=== PATIENT | male | born 1950 ===

== ENCOUNTER 2018-08-12 17:09 | Emergency (ER) | payer MEDICARE ==
[2018-08-12 17:18] VITALS: BP 139/74
--- NOTE | 2018-08-12 18:14 | ED ---
Upper Extremity Pain - HPI Summary HPI Summary: About 1600 yesterday Mr. Dover started with pain in his right upper arm and shoulder. It interfered with his sleep last night but hasn't essentially changed in severity or character since then. It hurts to move especially to try to lift his arm. He is not aware of any injury or overuse. He has a history of diabetes and hypertension. - History of Current Complaint Chief Complaint: UCUpperExtremity Stated Complaint: ARM COMPLAINT Time Seen by Provider: 08/12/18 18:01 Hx Obtained From: Patient Onset/Duration: Started Hours Ago - Timing: Constant Severity Initially: Moderate Severity Currently: Moderate Pain Location: Shoulder, Arm Character: Throbbing Aggravating Factor(s): Movement, Lifting, Flexion, Extension, Abduction Alleviating Factor(s): Nothing Associated Signs & Symptoms: Positive: Negative - Allergies/Home Medications Allergies/Adverse Reactions: Allergies Allergy/AdvReac Type Severity Reaction Status Date / Time No Known Allergies Allergy Verified 08/12/18 17:18 Home Medications: Home Medications Sitagliptin Phosphate [Januvia] 100 mg PO DAILY WITH MEAL 08/12/18 [History Confirmed 08/12/18] PMH/Surg Hx/FS Hx/Imm Hx Endocrine/Hematology History: Reports: Hx Diabetes Denies: Hx Thyroid Disease Cardiovascular History: Denies: Hx Hypertension Respiratory History: Denies: Hx Asthma, Hx Chronic Obstructive Pulmonary Disease (COPD) GI History: Denies: Hx Ulcer History: Reports: Hx Kidney Stones - Cancer History Cancer Type, Location and Year: CA prostate - Surgical History Surgery Procedure, Year, and Place: prostate biopsy, 2012 - Immunization History Date of Tetanus Vaccine: unk Infectious Disease History: No Infectious Disease History: Denies: Hx Clostridium Difficile, Hx Hepatitis, Hx Human Immunodeficiency Virus (HIV), Hx of Known/Suspected MRSA, Hx Shingles, Hx Tuberculosis, Hx Known/ Suspected VRE, Hx Known/Suspected VRSA, Traveled Outside the [place] in Last 30 Days - Social History Alcohol Use: Rare Substance Use Type: Reports: None Smoking Status (MU): Never Smoked Tobacco Review of Systems Constitutional: Negative ENT: Negative Cardiovascular: Negative Respiratory: Negative Gastrointestinal: Negative Positive: Decreased ROM Skin: Negative Neurological: Negative Psychological: Normal All Other Systems Reviewed And Are Negative: Yes Physical Exam - Summary Physical Exam Summary: He is nontoxic in appearance with stable vital signs. Triage Information Reviewed: Yes Vital Signs On Initial Exam: Initial Vitals Temp Pulse Resp BP Pulse Ox 98.1 F 76 20 139/74 98 08/12/18 17:14 08/12/18 17:14 08/12/18 17:14 08/12/18 17:14 08/12/18 17:14 Vital Signs Reviewed: Yes Appearance: Positive: Well-Appearing, Pain Distress - mild Skin: Positive: Warm, Dry Neck: Positive: Supple, Nontender Respiratory/Lung Sounds: Positive: Clear to Auscultation, Breath Sounds Present Cardiovascular: Positive: Normal, RRR, Pulses are Symmetrical in both Upper and Lower Extremities Abdomen Description: Positive: Nontender Musculoskeletal: Positive: Abnormal @ - He is tender to Active and Passive ROM at the shoulder and also tender to palpation of his biceps and deltoid. Neurological: Positive: Normal, Sensory/Motor Intact, Reflexes Intact Psychiatric: Positive: Normal AVPU Assessment: Alert Diagnostics - Vital Signs Vital Signs Temp Pulse Resp BP Pulse Ox 08/12/18 17:14 98.1 F 76 20 139/74 98 - Laboratory Lab Statement: Any lab studies that have been ordered have been reviewed, and results considered in the medical decision making process. Course/Dx - Course Course Of Treatment: I have a concern for the possibility of a septic shoulder given his underlying diagnosis of diabetes and the sudden onset and severe nystagmus of the pain with any range of motion. He is not willing to go to the emergency department at this time so I recommended that we draw blood, give him pain medication and have him follow-up with Dr. Lantigua tomorrow He is agreeable with this plan. - Diagnoses Provider Diagnoses: Shoulder pain, right Discharge - Sign-Out/Discharge Documenting (check all that apply): Patient Departure All imaging exams completed and their final reports reviewed: Yes - Discharge Plan Condition: Stable Disposition: HOME Referrals: Shantanu Ortiz MD [Primary Care Provider] - Additional Instructions: Follow up with Dr. Ortiz tomorrow. - Billing Disposition and Condition Condition: STABLE Disposition: Home
[2018-08-13 11:09] LABS: ABS Basophils 0.1 10^3/ul (0-0.2); ABS Eosinophils 0.1 10^3/ul (0-0.6); ABS Lymphocytes 1.6 10^3/ul (1.0-4.8); ABS Monocytes 0.6 10^3/ul (0-0.8); ABS Neutrophils 9.7 10^3/ul (1.5-7.7); ABS Nucleated RBC 0 10^3/ul; Eosinophil % 0.7 % (0-6); Hematocrit 40 % (42-52); Hemoglobin 13.6 g/dl (14.0-18.0); Lymphocyte % 13.2 % (25-47); Mean Corpuscular HGB Conc 34 g/dl (31-36); Mean Corpuscular Hemoglobin 29 pg (27-31); Mean Corpuscular Volume 83 fL (80-94); Mean Platelet Volume 9.6 fL (7.4-10.4); Nucleated Red Blood Cells % 0; Platelet Count 252 10^3/ul (150-450); Red Blood Count 4.79 10^6/ul (4.00-5.40); Red Cell Distribution Width 14 % (10.5-15)
[2018-08-13 11:24] LABS: EGFR Non-African American 92.7 (>60)
== END 2018-08-12 18:30 | disposition home or self-care (01) ==
LOC: UCEAST 17:09
DX: M25.511 Pain in right shoulder (principal); E11.9 Type 2 diabetes mellitus without complications; I10 Essential (primary) hypertension; Z79.84 Long term (current) use of oral hypoglycemic drugs; Z85.46 Personal history of malignant neoplasm of prostate
CPT/HCPCS: 36415; 80053; 85025; 86140; 99212; G0463